=== PATIENT | female | born 1980 | race Caucasian/White ===

== ENCOUNTER 2016-07-10 12:07 | Emergency (ER) | payer OTHER ==
[2016-07-10 12:18] VITALS: BP 135/88; PULSE 78; TEMP 98.3; BMI 25.6
[2016-07-10] MEDS ORDERED: ACETAMINOPHEN 500 MG TABLET (FP) PO ONE (12:42)
[2016-07-10 12:51] LABS: URINE APPEARANCE CLEAR; URINE BILIRUBIN NEGATIVE (NEGATIVE); URINE BLOOD NEGATIVE (NEGATIVE); URINE COLOR LTYELLOW; URINE GLUCOSE (UA) NEGATIVE (NEGATIVE); URINE KETONE NEGATIVE (NEGATIVE); URINE LEUK ESTERASE NEGATIVE (NEGATIVE); URINE NITRITE NEGATIVE (NEGATIVE); URINE PROTEIN NEGATIVE (NEGATIVE); URINE UROBILINOGEN NEGATIVE E.U./dl (0.2-1.0)
--- NOTE | 2016-07-10 12:55 | PDOC ---
History of Present Illness - General Chief Complaint: Pain Stated Complaint: VOMITING, PELVIC pain Time Seen by Provider: 07/10/16 12:26 History Source: Patient Exam Limitations: No Limitations - History of Present Illness Travel History: No Initial Comments: 07/10/16 12:56 36-year-old female presents to the ED with complaints of mild nausea since this morning associated bilateral pelvic pain. Patient denies dysuria, fever, chills , headache, dizziness, irregular menses or history of ovarian cysts. Patient states has a Mirena IUD in place and states menses is at a minimal with last one being about 3 weeks ago. Patient has no other complaints at this time. Timing/Duration: reports: constant Quality: reports: mild, cramping Abdominal Pain Onset Location: reports: suprapubic (bilateral) Pain Radiation: reports: no radiation Activities at Onset: reports: none Aggravating Factors: improves with: None Alleviating Factors: improves with: None Past History - Past Medical History Allergies/Adverse Reactions: Allergies Allergy/AdvReac Type Severity Reaction Status Date / Time No Known Allergies Allergy Verified 07/10/16 12:17 Home Medications: Ambulatory Orders NK [No Known Home Medication] 07/10/16 HTN: Yes Other medical history: pt has IUD - Reproductive History LMP Normal: Yes Is Patient Now?: No - Psycho/Social/Smoking Cessation Hx Suicidal Ideation: No Smoking History: Never smoked Information on smoking cessation initiated: No Hx Alcohol Use: No Drug/Substance Use Hx: No Substance Use Type: None Patient Lives Alone: No Lives with/in: spouse/SO Review of Systems - Review of Systems Able to Perform ROS?: Yes Constitutional: No: Symptoms Reported ABD/GI: Yes: Abdominal cramping (bilateral suprapubic) : No: Symptoms Reported Musculoskeletal: No: Symptoms Reported Integumentary: No: Symptoms Reported Neurological: No: Symptoms reported *Physical Exam - Vital Signs Last Vital Signs Temp Pulse Resp BP Pulse Ox 98.3 F 78 18 135/88 99 07/10/16 12:16 07/10/16 12:16 07/10/16 12:16 07/10/16 12:16 07/10/16 12:16 - Physical Exam General Appearance: Yes: Nourished, Appropriately Dressed. No: Apparent Distress HEENT: negative: Pale Conjunctivae Neck: positive: Supple Respiratory/Chest: positive: Lungs Clear, Normal Breath Sounds. negative: Respiratory Distress, Accessory Muscle Use Cardiovascular: positive: Regular Rhythm, Regular Rate. negative: Murmur Female Pelvic Exam: positive: normal external exam, cervical os closed. negative: normal adnexa, discharge, vaginal bleeding Gastrointestinal/Abdominal: positive: Normal Bowel Sounds, Soft, Tenderness ( bilateral pelvic) Musculoskeletal: negative: CVA Tenderness Integumentary: positive: Normal Color, Warm, Moist Neurologic: positive: Motor Strength 5/5 (ambulatory) ED Treatment Course - RADIOLOGY Radiology Studies Ordered: Category Date Time Status PELVIC / BLADDER US [US] Stat Ultrasound 07/10/16 12:42 Stop Req TRANSVAGINAL ULTRASOUND US [US] Stat Ultrasound 07/10/16 12:43 Ordered Medical Decision Making - Medical Decision Making 07/10/16 13:02 Patient with bilateral suprapubic pain since this morning associated with nausea. Patient ordered for urinalysis urine Tylenol and ultrasound. 07/10/16 14:02 Laboratory Tests 07/10/16 12:40 Urine Ketones Negative Urine Nitrite Negative Urine HCG, Qual Negative 07/10/16 14:56 Patient with 2.3 right ovarian cyst. Small to moderate amount of free fluid. Small amount of fluid within the endometrial cavity. IUD in place with IUD demonstrating an apparent fragmented appearance. Patient recommended to consult [facility]. There is no evidence of torsion. *DC/Admit/Observation/Transfer Diagnosis at time of Disposition: Cyst of ovary Qualifiers: Laterality: right Qualified Code(s): N83.201 - Unspecified ovarian cyst, right side - Discharge Dispostion Disposition: HOME Condition at time of disposition: Good - Patient Instructions Printed Discharge Instructions: DI for Ovarian Cyst Additional Instructions: May take Motrin or Tylenol for discomfort. May apply heating pad to the affected area. Please follow up with her [facility] to discuss your findings and bring your ultrasound report with you.
[2016-07-10] MEDS ORDERED: ACETAMINOPHEN 325 MG TABLET (FP) ONE (12:57)
== END 2016-07-10 15:11 | disposition home or self-care (01) ==
LOC: JERFT 12:07
DX: N83.201 Unspecified ovarian cyst, right side (principal); Z97.5 Presence of (intrauterine) contraceptive device
CPT/HCPCS: 76830-TC; 81003; 84703; 99281-25

== ENCOUNTER 2016-10-03 22:43 | Emergency (ER) | payer OTHER ==
[2016-10-03 23:33] VITALS: BP 133/98; PULSE 83; TEMP 98.1; BMI 24.7
[2016-10-04] MEDS ORDERED: KETOROLAC TROMETHAMINE 30 MG/1 ML VIAL IVPUSH ONE (02:05)
[2016-10-04] MEDS ORDERED: diazePAM 5 MG TABLET PO ONE (02:05)
--- NOTE | 2016-10-04 02:17 | PDOC ---
History of Present Illness - General History Source: Patient Exam Limitations: No Limitations - History of Present Illness Initial Comments: 10/04/16 02:21 The patient is a 36 year old female with past medical history of hypertension who presents to the ED with complaints of right shoulder pain for the past three days. The patient states the pain began when she woke up from sleep. She denies any injury, trauma, or heavy lifting. She denies any numbness or tingling /change in sensation. The patient reports 10/10 in pain and states its like a muscle pain. She reports taking advil for the pain with minimal relief. The patient denies any illness, fever, chills, nausea, vomiting, diarrhea, cough, SOB, CP, or urinary symptoms. <Shelia Osman - Last Filed: 10/04/16 02:21> - General History Source: Patient Exam Limitations: No Limitations <Heath Burrell - Last Filed: 10/04/16 04:41> - General Chief Complaint: Pain Stated Complaint: RIGHT SIDE PAIN Time Seen by Provider: 10/04/16 02:01 Past History <Shelia Osman - Last Filed: 10/04/16 02:21> - Past Medical History HTN: Yes - Psycho/Social/Smoking Cessation Hx Suicidal Ideation: No Smoking History: Never smoked Information on smoking cessation initiated: No Hx Alcohol Use: No Drug/Substance Use Hx: No Substance Use Type: None <Heath Burrell - Last Filed: 10/04/16 04:41> - Past Medical History Allergies/Adverse Reactions: Allergies Allergy/AdvReac Type Severity Reaction Status Date / Time No Known Allergies Allergy Verified 10/03/16 23:30 Home Medications: Ambulatory Orders Naproxen [Naprosyn -] 500 mg PO BID PRN #14 tablet 10/04/16 Review of Systems - Review of Systems Able to Perform ROS?: Yes Comments:: 10/04/16 02:21 GENERAL/CONSTITUTIONAL: No fever or chills. No weakness. HEAD, EYES, EARS, NOSE AND THROAT: No change in vision. No ear pain or discharge. No sore throat. CARDIOVASCULAR: No chest pain or shortness of breath. RESPIRATORY: No cough, wheezing, or hemoptysis. GASTROINTESTINAL: No nausea, vomiting, diarrhea or constipation. GENITOURINARY: No dysuria, frequency, or change in urination. MUSCULOSKELETAL: Present: right shoulder pain No neck or back pain. SKIN: No rash NEUROLOGIC: No headache, vertigo, loss of consciousness, or change in strength/ sensation. ENDOCRINE: No increased thirst. No abnormal weight change. HEMATOLOGIC/LYMPHATIC: No anemia, easy bleeding, or history of blood clots. ALLERGIC/IMMUNOLOGIC: No hives or skin allergy. All Other Systems: Reviewed and Negative <Shelia Osman - Last Filed: 10/04/16 02:21> *Physical Exam - Vital Signs Last Vital Signs Temp Pulse Resp BP Pulse Ox 98.1 F 83 19 133/98 99 10/03/16 23:30 10/03/16 23:30 10/03/16 23:30 10/03/16 23:30 10/03/16 23:30 - Physical Exam Comments: 10/04/16 02:22 GENERAL: Awake, alert, and fully oriented, in no acute distress HEAD: No signs of trauma EYES: PERRLA, EOMI, sclera anicteric, conjunctiva clear ENT: Auricles normal inspection, hearing grossly normal, nares patent, oropharynx clear without exudates. Moist mucosa NECK: Normal ROM, supple, no lymphadenopathy, JVD, or masses LUNGS: Breath sounds equal, clear to auscultation bilaterally. No wheezes, and no crackles HEART: Regular rate and rhythm, normal S1 and S2, no murmurs, rubs or gallops ABDOMEN: Soft, nontender, normoactive bowel sounds. No guarding, no rebound. No masses EXTREMITIES: Right upper extremity: 2+ radial pulse, median, radial, ulnar sensation intact . Pain upon flexion, abduction, and touch to contralateral shoulder. Stiffness reported. No edema. No clubbing or cyanosis. No cords, erythema. NEUROLOGICAL: Cranial nerves II through XII grossly intact. Normal speech, normal gait SKIN: Warm, Dry, normal turgor, no rashes or lesions noted. <Shelia Osman - Last Filed: 10/04/16 02:21> - Vital Signs Last Vital Signs Temp Pulse Resp BP Pulse Ox 98.1 F 83 19 133/98 99 10/03/16 23:30 10/03/16 23:30 10/03/16 23:30 10/03/16 23:30 10/03/16 23:30 <Heath Burrell - Last Filed: 10/04/16 04:41> ED Treatment Course - ADDITIONAL ORDERS Additional order review: Laboratory Results 10/04/16 02:02 Urine HCG, Qual Negative <Shelia Osman - Last Filed: 10/04/16 02:21> - RADIOLOGY Radiology Studies Ordered: Category Date Time Status SHOULDER-RIGHT [RAD] Stat Radiology 10/04/16 02:02 Ordered <Heath Burrell - Last Filed: 10/04/16 04:41> Medical Decision Making - Medical Decision Making 10/04/16 02:11 A portion of this note was documented by scribe services under my direction. I have reviewed the details of the note, within reason, and agree with the documentation with the following case summary and management plan written by me. Patient treated in the ED. Nursing notes are reviewed and incorporated into the medical decision-making. Vital signs reviewed. Peripheral IV access obtained by the nurse, laboratory studies are drawn and sent, reviewed and interpreted by myself. Vital Signs Temp Pulse Resp BP Pulse Ox 98.1 F 83 19 133/98 99 10/03/16 23:30 10/03/16 23:30 10/03/16 23:30 10/03/16 23:30 10/03/16 23:30 36-year-old female with past medical history of hypertension presents with right shoulder pain for 3 days. Patient reports that 3 days ago, she woke up and had right shoulder stiffness. Denies trauma or injuries. Denies sports injuries. Denies any numbness or weakness. Stated that when she abducts or flexor extensor arm she has right shoulder stiffness. She states at rest the pain is improved but her right shoulder is worsened with movement. I suspect the patient likely has shoulder impingement. We'll trial NSAIDs and muscle relaxants and obtain a right shoulder x-ray. If workup done shows no acute finding is, we'll refer to orthopedics for further management. <Heath Burrell - Last Filed: 10/04/16 04:41> *DC/Admit/Observation/Transfer - Attestations Scribe Attestion: 10/04/16 02:24 Documentation prepared by Shelia Osman, acting as medical art therapist for Heath Burrell MD. <Shelia Osman - Last Filed: 10/04/16 02:21> - Discharge Dispostion Admit: No <Heath Burrell - Last Filed: 10/04/16 04:41> Diagnosis at time of Disposition: Shoulder pain, right Qualifiers: Chronicity: acute Qualified Code(s): M25.511 - Pain in right shoulder - Discharge Dispostion Disposition: HOME Condition at time of disposition: Stable - Prescriptions Prescriptions: Naproxen [Naprosyn -] 500 mg PO BID PRN #14 tablet PRN Reason: Pain - Referrals Referrals: Hector Sepulveda MD [Primary Care Provider] - Ed Ko MD [Staff Physician] - - Patient Instructions Printed Discharge Instructions: DI for Shoulder Pain Additional Instructions: Please take 500 mg naproxen every 12 hours as needed for pain. Please follow up with your doctor and orthopedist. You may need physical therapy. Wear the sling for comfort. If you have too much pain, return to the ER.
[2016-10-04] MEDS ORDERED: diazePAM 5 MG TABLET ONE (02:20)
[2016-10-04] MEDS ORDERED: KETOROLAC TROMETHAMINE 30 MG/1 ML VIAL ONE (02:20)
== END 2016-10-04 04:48 | disposition home or self-care (01) ==
LOC: JER 22:43
PROC: 3E0333Z Introduction of Anti-inflammatory into Peripheral Vein, Percutaneous Approach (ICD-10-PCS; principal; 2016-10-03)
DX: M25.511 Pain in right shoulder (principal); I10 Essential (primary) hypertension
CPT/HCPCS: 73030-TC-RT; 84703; 96374; 99281-25; 99282-25

== ENCOUNTER 2018-03-01 15:26 | Emergency (ER) | payer OTHER ==
[2018-03-01 15:36] VITALS: BP 146/107; PULSE 92; TEMP 98.6; BMI 24.6
--- NOTE | 2018-03-01 15:37 | PDOC ---
Rapid Medical Evaluation Time Seen by Provider: 03/01/18 15:34 Medical Evaluation: Allergies Allergy/AdvReac Type Severity Reaction Status Date / Time No Known Allergies Allergy Verified 10/03/16 23:30 03/01/18 15:34 I have performed a brief in-person evaluation of this patient. The patient presents with a chief complaint of: Lower back pain. Has h/o chronic LBP, has upcoming MRI, HTN. Taking naproxen and muscle relaxant w/ no relief Pertinent physical exam findings:BP mildly elevated, took no meds today I have ordered the following:nothing The patient will proceed to the ED for further evaluation 03/01/18 15:36 Discharge Disposition - Diagnosis Lower back pain Qualifiers: Chronicity: acute Back pain laterality: left Sciatica presence: without sciatica Qualified Code(s): M54.5 - Low back pain - Referrals Referrals: Hector Sepulveda MD [Primary Care Provider] - - Patient Instructions - Post Discharge Activity
[2018-03-01] MEDS ORDERED: KETOROLAC TROMETHAMINE 60 MG/2 ML VIAL IM ONE (16:02)
--- NOTE | 2018-03-01 16:07 | PDOC ---
History of Present Illness - General Chief Complaint: Chronic pain Stated Complaint: Back Pain Time Seen by Provider: 03/01/18 15:34 - History of Present Illness Initial Comments: 03/01/18 16:04 38-year-old female without comorbidities presents for evaluation of lower back pain. She is scheduled for an MRI tomorrow however her pain is gotten worse over the last few days. No radicular symptoms loss of bowel or bladder function or saddle paresthesia. Past History - Past Medical History Allergies/Adverse Reactions: Allergies Allergy/AdvReac Type Severity Reaction Status Date / Time No Known Allergies Allergy Verified 03/01/18 15:36 Home Medications: Ambulatory Orders Metoprolol Succinate [Toprol Xl] 25 mg PO ASDIR 03/01/18 COPD: No HTN: Yes - Suicide/Smoking/Psychosocial Hx Smoking History: Never smoked Have you smoked in the past 12 months: No Information on smoking cessation initiated: No Hx Alcohol Use: No Drug/Substance Use Hx: No Substance Use Type: None Review of Systems - Review of Systems Constitutional: No: Fever Musculoskeletal: Yes: Back Pain *Physical Exam - Vital Signs Last Vital Signs Temp Pulse Resp BP Pulse Ox 98.6 F 92 H 16 146/107 H 100 03/01/18 15:35 03/01/18 15:35 03/01/18 15:35 03/01/18 15:35 03/01/18 15:35 - Physical Exam Comments: 03/01/18 16:05 Lumbar spine skin color and temperature are normal range of motion slightly decreased. There is no midline tenderness and mild right and left paralumbar muscle spasm and tenderness 5/5 strength in bilateral lower extremities without gross sensorimotor deficits. She is neurovascularly intact. Moderate Sedation - Procedure Monitoring Vital Signs: Procedure Monitoring Vital Signs Temperature 98.6 F 03/01/18 15:35 Pulse Rate 92 H 03/01/18 15:35 Respiratory Rate 16 03/01/18 15:35 Blood Pressure 146/107 H 03/01/18 15:35 O2 Sat by Pulse Oximetry (%) 100 03/01/18 15:35 *DC/Admit/Observation/Transfer Diagnosis at time of Disposition: Lower back pain Qualifiers: Chronicity: acute Back pain laterality: left Sciatica presence: without sciatica Qualified Code(s): M54.5 - Low back pain - Discharge Dispostion Disposition: HOME Condition at time of disposition: Stable Decision to Admit order: No - Referrals Referrals: Hector Sepulveda MD [Primary Care Provider] - - Patient Instructions Printed Discharge Instructions: DI for Low Back Pain, Low Back Pain Additional Instructions: Return to the emergency room should symptoms worsen or go on resolve. Please follow-up with your doctor as directed continue the medication U have be given by her doctor as directed as well. - Post Discharge Activity
[2018-03-01] MEDS ORDERED: KETOROLAC TROMETHAMINE 60 MG/2 ML VIAL ONE (16:09)
== END 2018-03-01 16:14 | disposition home or self-care (01) ==
LOC: JERFT 15:26
PROC: 3E0233Z Introduction of Anti-inflammatory into Muscle, Percutaneous Approach (ICD-10-PCS; principal; 2018-03-01)
DX: M54.5 Low back pain (principal); I10 Essential (primary) hypertension
CPT/HCPCS: 99281-25